=== PATIENT | male | born 1985 | race Caucasian/White ===

== ENCOUNTER 2024-08-30 08:24 | Emergency (ER) | payer OTHER ==
[~2024-08-30] VITALS: Ht 185.4 cm; Wt 122.5 kg
[2024-08-30 08:28] VITALS: BP 182/98
[2024-08-30] MEDS ORDERED: Ketorolac Tromethamine 30mg Vial IM ONE (08:35)
[2024-08-30] MEDS ORDERED: Percocet 5-3251 EACH PO (09:24)
[2024-08-30] MEDS ORDERED: CYCL10 PO (09:24)
== END 2024-08-30 09:45 | disposition home or self-care (01) ==
LOC: ER 08:24
DX: R07.81 Pleurodynia (principal); F17.200 Nicotine dependence, unspecified, uncomplicated
CPT/HCPCS: 71101; 96372; 99283-25; J1885